=== PATIENT | male | born 1980 | race American Indian/Alaskan Native ===

== ENCOUNTER 2017-09-23 12:57 | Emergency (ER) | payer OTHER ==
[2017-09-23 13:26] VITALS: BP 120/68
[2017-09-23] MEDS ORDERED: FUL-GLO OP ONE (14:12)
[2017-09-23] MEDS ORDERED: TETRACAINE 0.5% OU ONE (14:12)
--- NOTE | 2017-09-23 14:35 | Emergency Department Report ---
Eye Injury/Foreign Body - HPI Duration: Today Eye Location: Left Severity: Mild Eye Symptoms: Eye Pain: Yes, Blurred Vision: Yes, Eye Redness: Yes, Grinding/ Hammering Metal: No, Used Eye Protection: No, Contact Lens Use: No, Recalls Injury: No, Photophobia: No Other History: Patient states that he went to sleep fine last night and now is having some blurry vision sensation that something is in his eye. ED Review of Systems ROS: Stated complaint: EYES BURNING Other details as noted in HPI Comment: All other systems reviewed and negative ED Past Medical Hx - Past Medical History Previous Medical History?: No - Surgical History Past Surgical History?: No - Social History Smoking Status: Current Every Day Smoker Substance Use Type: Alcohol - Medications Home Medications: Home Medications Medication Instructions Recorded Confirmed Last Taken Type Cyclobenzaprine [Flexeril 10 MG 10 mg PO TID PRN #30 tablet 12/21/13 Unknown Rx TAB] HYDROcodone/APAP 7.5-325 [[place] 1 each PO Q6HR PRN #20 tablet 12/21/13 Unknown Rx 7.5-325 mg TAB] Ibuprofen [Motrin 600 MG tab] 600 mg PO Q8H PRN #60 tablet 12/21/13 Unknown Rx Neomy/Polymyx B/Hc Opth Susp 1 drop OS Q6HR #1 bottle 09/23/17 Unknown Rx [Cortisporin (OPTH) Susp] Eye Injury Exam - Exam General: Vital signs noted. No distress. Alert and acting appropriately. Patient's heart and lung exams within normal limits. Left eye with forcing staining does show a small corneal abrasion Center eye ED Course Vital Signs 09/23/17 13:23 Temperature 97.6 F Pulse Rate 65 Respiratory 20 Rate Blood Pressure 120/68 O2 Sat by Pulse 100 Oximetry Critical care attestation.: If time is entered above; I have spent that time in minutes in the direct care of this critically ill patient, excluding procedure time. ED Disposition Clinical Impression: Cornea abrasion Qualifiers: Encounter type: initial encounter Laterality: left Qualified Code(s): S05.02XA - Injury of conjunctiva and corneal abrasion without foreign body, left eye, initial encounter Disposition: TO HOME OR SELFCARE Is pt being admited?: No Does the pt Need Aspirin: No Condition: Stable Instructions: Corneal Abrasion (ED) Prescriptions: Neomy/Polymyx B/Hc Opth Susp [Cortisporin (OPTH) Susp] 1 drop OS Q6HR #1 bottle Referrals: PRIMARY CARE, [Primary Care Provider] - 3-5 Days
== END 2017-09-23 14:59 | disposition home or self-care (01) ==
LOC: ED 12:57
DX: S05.02XA Injury of conjunctiva and corneal abrasion without foreign body, left eye, initial encounter (principal); F17.200 Nicotine dependence, unspecified, uncomplicated; X58.XXXA Exposure to other specified factors, initial encounter; Y93.89 Activity, other specified; Y99.8 Other external cause status; Y92.89 Other specified places as the place of occurrence of the external cause
CPT/HCPCS: 99282